=== PATIENT | female | born 1980 | race Two or more races ===

== ENCOUNTER 2016-11-16 23:49 | Emergency (ER) | payer SELFPAY ==
[2016-11-16 23:54] VITALS: BP 115/60; PULSE 72; TEMP 98.4; BMI 28.8
[2016-11-17] MEDS ORDERED: ONDANSETRON HCL 4 MG/2 ML VIAL IV ONE (00:01)
[2016-11-17] MEDS ORDERED: MORPHINE 4 MG/ML INJECTION IV ONE (00:01)
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
[2016-11-17] MEDS ORDERED: OXYCODONE HCL 5 MG TABLET PO ONE (01:22)
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
== END 2016-11-17 01:30 | disposition home or self-care (01) ==
LOC: ED 23:49
DX: S52.501A Unspecified fracture of the lower end of right radius, initial encounter for closed fracture (principal); S52.611A Displaced fracture of right ulna styloid process, initial encounter for closed fracture; W01.0XXA Fall on same level from slipping, tripping and stumbling without subsequent striking against object, initial encounter; Y93.9 Activity, unspecified
CPT/HCPCS: 29125; 73110; 73130; 96374; 96375; 99283; J2270; J2405; J3490